=== PATIENT | female | born 1990 | race Caucasian/White ===

== ENCOUNTER 2016-04-23 05:43 | Emergency (ER) | payer OTHER ==
[~2016-04-23] VITALS: Ht 160 cm; Wt 89.4 kg
[~2016-04-23 05:43] MED LIST: NIFE10CA2 PO; PREN1TAB27 PO
[2016-04-23 05:55] VITALS: BP 113/69
[2016-04-23] MEDS ORDERED: LIDOCAINE 2% VISCOUS 15 ML SOLUTION. SWSW ONE (06:30)
--- NOTE | 2016-04-23 06:40 | PHYS DOC ---
Past Medical History Past Medical History: No Pertinent History Past Surgical History: Additional Past Surgical Histo: hernia repair Alcohol Use: None Drug Use: None Adult General Chief Complaint Chief Complaint: FOREIGNBODY EAR HPI HPI Patient is a 25 year old female who presents with possible foreign body in right ear. Patient states she awoke shortly before arrival in the emergency department with a sensation of something moving in her right ear. Patient is concerned she may have a bug in her ear. The patient states that she tried to clear the foreign body but stated that she stopped when she felt increased movement. Patient denies any other complaints. Patient came to the emergency department for evaluation and removal of the foreign body. Review of Systems Review of Systems Constitutional: Denies fever or chills [] Eyes: Denies change in visual acuity, redness, or eye pain [] HENT: Denies nasal congestion or sore throat [] Respiratory: Denies cough or shortness of breath [] Cardiovascular: No additional information not addressed in HPI [] GI: Denies abdominal pain, nausea, vomiting, bloody stools or diarrhea [] : Denies dysuria or hematuria [] Musculoskeletal: Denies back pain or joint pain [] Integument: Denies rash or skin lesions [] Neurologic: Denies headache, focal weakness or sensory changes [] Endocrine: Denies polyuria or polydipsia [] Current Medications Current Medications Current Medications Medications (Trade) Dose Ordered Sig/[facility] Start Time Stop Time Status Last Admin Dose Admin Lidocaine HCl (Viscous Lidocaine) 15 ml 1X ONCE 04/23/16 06:30 04/23/16 06:31 DC 04/23/16 06:30 15 ML Allergies Allergies Allergies Coded Allergies Type Severity Reaction Last Updated Verified No Known Drug Allergies 07/25/13 No Physical Exam Physical Exam Constitutional: Well developed, well nourished, no acute distress, non-toxic appearance. [] HENT: Normocephalic, atraumatic, visible insect present in right ear canal, ear canal excoriated, left ear normal, oropharynx moist, no oral exudates, nose normal. [] Neck: Normal range of motion, no tenderness, supple, no stridor. [] Lungs & Thorax: Bilateral breath sounds clear to auscultation [] Extremities: No tenderness, no cyanosis, no clubbing, ROM intact, no edema. [] Neurologic: Alert and oriented X 3, normal motor function, normal sensory function, no focal deficits noted. [] Current Patient Data Vital Signs Vital Signs Date Time Temp Pulse Resp B/P Pulse Ox O2 Delivery O2 Flow Rate FiO2 04/23/16 05:55 98.1 88 16 97 Room Air 98.1 EKG EKG Not performed [] Radiology/Procedures Radiology/Procedures Not performed [] Course & Med Decision Making Course & Med Decision Making Pertinent Labs and Imaging studies reviewed. (See chart for details) Insect was successfully removed from the patient's right ear canal as outlined in the procedure note. Patient had a significant amount of excoriation to the right ear canal and will be started on Cortisporin drops for the next 3 days. Advised follow-up as needed with primary doctor and return to emergency department for any worsening symptoms. Patient voiced understanding and in agreement with treatment plan. Dragon Disclaimer Dragon Disclaimer This electronic medical record was generated, in whole or in part, using a voice recognition dictation system. Foreign Body Removal Procedure Indication: Insect in right ear canal Procedure: The patient was positioned in seated position for the procedure. Local anesthesia over the foreign body site was accomplished with placement of 4 -5 drops of viscous lidocaine in the right ear canal. The foreign body was then removed with flushing using saline. The patient tolerated the procedure well. Complications: None Departure Departure Impression: Primary Impression: Ear foreign body Disposition: 01 HOME, SELF-CARE Condition: IMPROVED Referrals: NO PCP (PCP) Patient Instructions: Ear Foreign Body Additional Instructions: Follow-up with your primary doctor as needed. Return to the emergency department for any worsening symptoms. Scripts Ofloxacin 5 Ml Drops5 Drop EACH EAR BID 5 Days Prov:JADE NAIDU MD 04/23/16 Problem Qualifiers Primary Impression: Ear foreign body Encounter type: initial encounter Laterality: right Qualified Code: T16.1XXA - Foreign body in right ear, initial encounter JADE NAIDU MD Apr 23, 2016 06:40
[2016-04-23] MEDS ORDERED: OFLO5DRO7 EACH EAR (06:53)
== END 2016-04-23 07:10 | disposition home or self-care (01) ==
LOC: ER 05:43
DX: T16.1XXA Foreign body in right ear, initial encounter (principal); X58.XXXA Exposure to other specified factors, initial encounter; Y93.89 Activity, other specified; Y99.8 Other external cause status; Y92.89 Other specified places as the place of occurrence of the external cause
CPT/HCPCS: 69200; 99284-25

== ENCOUNTER 2016-07-09 09:16 | Emergency (ER) | payer SELFPAY ==
[~2016-07-09] VITALS: Ht 162.6 cm; Wt 90.7 kg
[~2016-07-09 09:16] MED LIST changes: +OFLO5DRO7 EACH EAR
[2016-07-09 11:18] VITALS: BP 128/85
--- NOTE | 2016-07-09 11:54 | PHYS DOC ---
Past Medical History Past Medical History: No Pertinent History Past Surgical History: Additional Past Surgical Histo: hernia repair Additional Information: Nonsmoker Alcohol Use: None Drug Use: None Adult General Chief Complaint Chief Complaint: MECHANICAL FALL HPI HPI Patient is a 25 year old female who presents with pain in her tailbone after fall at 0300 this morning. Patient states that she tripped over the baby gate and fell, landing on her bottom. She denies hitting her head or loss of consciousness. She does not have any incontinence or saddle anesthesia. She denies nausea, vomiting, abdominal pain, weakness, or numbness. She took ibuprofen at 0830. She does not have a PCP. Review of Systems Review of Systems Constitutional: Denies fever or chills. [] Eyes: Denies change in visual acuity, redness, or eye pain. [] GI: Denies abdominal pain, nausea, vomiting, bloody stools or diarrhea. [] : Denies dysuria, hematuria or urinary frequency. [] Musculoskeletal: Denies joint pain. Reports pain in the tailbone. Integument: Denies rash or skin lesions. [] Neurologic: Denies headache, focal weakness or sensory changes. Denies incontinence or saddle anesthesia. All systems reviewed and negative unless otherwise stated in the HPI. Allergies Allergies Allergies Coded Allergies Type Severity Reaction Last Updated Verified No Known Drug Allergies 07/25/13 No Physical Exam Physical Exam Constitutional: Well developed, well nourished, no acute distress, non-toxic appearance. [] HENT: Normocephalic, atraumatic, oropharynx moist. [] Eyes: PERRLA, EOMI, conjunctiva normal, no discharge. [] Neck: Normal range of motion, no tenderness, supple, no stridor. [] Cardiovascular: Heart rate regular rhythm, no murmur. [] Lungs & Thorax: Bilateral breath sounds clear to auscultation without wheezes, rales, or rhonchi. [] Abdomen: Bowel sounds normal, soft, no tenderness, no masses, no pulsatile masses. [] Skin: Warm, dry, no erythema, no rash. [] Back: Sacral midline tenderness, no CVA tenderness. Mild bilateral lumbosacral muscle tenderness. Extremities: No tenderness, ROM intact, no edema. Distal pulses equal bilaterally. Vascular intact distally. Neurologic: Alert and oriented X 3, normal motor function, normal sensory function, no focal deficits noted. [] Psychologic: Affect normal, judgement normal, mood normal. [] Current Patient Data Vital Signs Vital Signs Date Time Temp Pulse Resp B/P Pulse Ox O2 Delivery O2 Flow Rate FiO2 07/09/16 11:18 98.1 65 20 100 Room Air 98.1 Lab Values Laboratory Tests Test 07/09/16 10:44 POC Urine HCG, Qualitative Hcg negative (Negative) EKG EKG [] Radiology/Procedures Radiology/Procedures REASON: fall at 0300 PROCEDURE: SACRUM & COCCYX 3V Sacrococcygeal spine, 3 views, 07/09/2016: History: Fall, pain No fracture is identified. The presacral soft tissues are unremarkable. IMPRESSION: No significant abnormality is detected. Course & Med Decision Making Course & Med Decision Making Pertinent Labs and Imaging studies reviewed. (See chart for details) [] Dragon Disclaimer Dragon Disclaimer This electronic medical record was generated, in whole or in part, using a voice recognition dictation system. Departure Departure Impression: Primary Impression: Coccygeal contusion Disposition: 01 HOME, SELF-CARE Condition: STABLE Referrals: NO PCP (PCP) Patient Instructions: Tailbone Injury, [id number] Additional Instructions: There were no broken bones or dislocations seen on your x-ray. Please take the prescribed medications as directed. Do not drive or operate heavy machinery while taking these medications. You may purchase a donut pillow to sit on while your tailbone heals. You may take a stool softener to help keep your bowel movements soft. Please follow-up with a primary care doctor if your pain continues. Return to the emergency department if you have any new or concerning symptoms. Scripts Methocarbamol (Robaxin)500 Mg [id number] Mg PO QID #20 TAB Prov:URIAH WATKINS 07/09/16 Tramadol Hcl (Ultram)50 Mg [id number] Mg PO Q6H PRN PAIN #20 TAB Prov:URIAH WATKNIS 07/09/16 Problem Qualifiers Primary Impression: Coccygeal contusion Encounter type: initial encounter Qualified Code: S30.0XXA - Contusion of lower back and pelvis, initial encounter URIAH WATKINS Jul 09, 2016 11:54
--- NOTE | 2016-07-09 12:30 | RAD ---
Sacrococcygeal spine, 3 views, 07/09/2016: History: Fall, pain No fracture is identified. The presacral soft tissues are unremarkable. IMPRESSION: No significant abnormality is detected.
[2016-07-09] MEDS ORDERED: METH-37 PO (12:58)
[2016-07-09] MEDS ORDERED: TRAM-29 PO (12:58)
== END 2016-07-09 13:18 | disposition home or self-care (01) ==
LOC: ER 09:16
DX: S30.0XXA Contusion of lower back and pelvis, initial encounter (principal); W01.0XXA Fall on same level from slipping, tripping and stumbling without subsequent striking against object, initial encounter; Y93.89 Activity, other specified; Y92.89 Other specified places as the place of occurrence of the external cause; Y99.8 Other external cause status
CPT/HCPCS: 72220; 81025; 99284

== ENCOUNTER 2016-09-19 01:20 | Emergency (ER) | payer OTHER ==
[~2016-09-19] VITALS: Ht 160 cm; Wt 93.9 kg
[~2016-09-19 01:20] MED LIST changes: +METH-37 PO; -NIFE10CA2 PO; +NIFE10CA48 PO; +TRAM-48 PO
[2016-09-19 01:33] VITALS: BP 132/84
--- NOTE | 2016-09-19 02:11 | PHYS DOC ---
Past Medical History Past Medical History: No Pertinent History Past Surgical History: Additional Past Surgical Histo: hernia repair Alcohol Use: None Drug Use: None Adult General Chief Complaint Chief Complaint: FOREIGNBODY EAR HPI HPI Patient is a 26 year old female who presents with right ear pain and sensation that there is a bug in her ear. She is very anxious about this. She denies headache, tinnitus, numbness, tingling, weakness, dizziness. Review of Systems Review of Systems Constitutional: Denies fever or chills [] Eyes: Denies change in visual acuity, redness, or eye pain [] HENT: Denies nasal congestion or sore throat [] Respiratory: Denies cough or shortness of breath [] Cardiovascular: No additional information not addressed in HPI [] GI: Denies abdominal pain, nausea, vomiting, bloody stools or diarrhea [] : Denies dysuria or hematuria [] Musculoskeletal: Denies back pain or joint pain [] Integument: Denies rash or skin lesions [] Neurologic: Denies headache, focal weakness or sensory changes [] Endocrine: Denies polyuria or polydipsia [] Allergies Allergies Allergies Coded Allergies Type Severity Reaction Last Updated Verified No Known Drug Allergies 07/25/13 No Physical Exam Physical Exam Constitutional: Well developed, well nourished, no acute distress, non-toxic appearance. [] HENT: Normocephalic, atraumatic, bilateral external ears normal, oropharynx moist, nose normal. Bug in right ear canal. 2 red spots on TM without perforation. [] Eyes: PERRLA, EOMI. [] Neck: Normal range of motion, supple. [] Cardiovascular:Heart rate regular rhythm [] Lungs & Thorax: Bilateral breath sounds clear to auscultation [] Abdomen: Bowel sounds normal, soft, no tenderness. [] Skin: Warm, dry, no erythema, no rash. [] Back: Normal ROM. [] Extremities: No tenderness, ROM intact. [] Neurologic: Alert and oriented X 3, normal motor function, normal sensory function, no focal deficits noted. [] Psychologic: Affect normal, judgement normal, mood normal. [] Current Patient Data Vital Signs Vital Signs Date Time Temp Pulse Resp B/P (MAP) Pulse Ox O2 Delivery O2 Flow Rate FiO2 09/19/16 01:33 98.2 78 20 100 Room Air 98.2 Course & Med Decision Making Course & Med Decision Making Ear irrigated with lidocaine. Foreign body no longer present. She is asymptomatic at this time. Return precautions given. She understands and agrees plan. Monae Disclaimer Monae Disclaimer This electronic medical record was generated, in whole or in part, using a voice recognition dictation system. Departure Departure Impression: Primary Impression: Ear foreign body Disposition: HOME, SELF-CARE Condition: STABLE Referrals: NO PCP (PCP) Patient Instructions: Ear Foreign Body, [id number] Additional Instructions: Follow-up with your primary care doctor. Return for any concerns. Problem Qualifiers Primary Impression: Ear foreign body Encounter type: initial encounter Laterality: right Qualified Codes: T16.1XXA - Foreign body in right ear, initial encounter Oxana MUNOZ MD Sep 19, 2016 02:11
== END 2016-09-19 02:31 | disposition home or self-care (01) ==
LOC: ER 01:20
DX: T16.1XXA Foreign body in right ear, initial encounter (principal); F41.9 Anxiety disorder, unspecified; X58.XXXA Exposure to other specified factors, initial encounter; Y93.89 Activity, other specified; Y92.89 Other specified places as the place of occurrence of the external cause; Y99.8 Other external cause status
CPT/HCPCS: 99284

== ENCOUNTER 2016-11-28 11:27 | Emergency (ER) | payer OTHER ==
[~2016-11-28] VITALS: Ht 162.6 cm; Wt 90.7 kg
[2016-11-28 11:33] VITALS: BP 139/74
--- NOTE | 2016-11-28 11:50 | PHYS DOC ---
Past Medical History Past Medical History: No Pertinent History Past Surgical History: Other Additional Past Surgical Histo: UMBILICAL HERNIA Alcohol Use: None Drug Use: None Adult General Chief Complaint Chief Complaint: CHEST WALL PAIN [facility] HPI This is a pleasant 26-year-old female who was working at her place of work when she was struck by a chest wall pain over the left breast. It is waxing and waning but never completely resolving and is worse with breathing and chest wall movement as well as movement of the left shoulder. It is described as sharp and stabbing with no cause for shortness of breath, nausea, vomiting, URI symptoms. She denies any trauma, night sweats, weight loss or productive cough. Patient says the pain is moderate and sharp in nature. It does not radiate to the shoulder or back, But is worsened by shoulder movement. Impression denies any prior injury to her chest wall denies being or having any pulmonary embolus risk factors. sHe has no family history or cardiac risk factors. Differential diagnosis for chest pain: Pericarditis, myocarditis, endocarditis, pneumothorax, pneumonia, aortic dissection, esophageal spasm, esophagitis, peptic ulcer disease, acute coronary syndrome, mediastinitis, Boerhaave syndrome, musculoskeletal chest wall pain, costochondritis, intercostal strain, rib fracture, pulmonary contusion, pneumonitis, pleural effusion, pericardial effusion, pericardial tamponode, and pleurisy. Considered upon arrival based on patient's history and physical exam findings. An EKG and chest x-ray are been ordered Review of Systems Review of Systems Constitutional: Denies fever or chills [] Eyes: Denies change in visual acuity, redness, or eye pain [] HENT: Denies nasal congestion or sore throat [] Respiratory: Denies cough or shortness of breath [] Cardiovascular: No additional information not addressed in HPI [] GI: Denies abdominal pain, nausea, vomiting, bloody stools or diarrhea [] : Denies dysuria or hematuria [] Musculoskeletal: Denies back pain or joint pain [] Integument: Denies rash or skin lesions [] Neurologic: Denies headache, focal weakness or sensory changes [] Endocrine: Denies polyuria or polydipsia [] Allergies Allergies Allergies Coded Allergies Type Severity Reaction Last Updated Verified No Known Drug Allergies 07/25/13 No Physical Exam Physical Exam Vital signs recorded on the chart they're within normal limits. Constitutional: Well developed, well nourished, no acute distress, non-toxic appearance. [] Neck: Normal range of motion, no tenderness, supple, no stridor. [] Cardiovascular:Heart rate regular rhythm, no murmur, she has localized soft tissue tenderness to palpation with a local muscle spasm over the pectoralis major on the left. There is no change in the tissue color, there is no rashes no redness or swelling. Tender to palpation over the apical, ribs or sternum. [] Lungs & Thorax: Bilateral breath sounds clear to auscultation [] Skin: Warm, dry, no erythema, no rash. [] Back: No tenderness, no CVA tenderness. [] Extremities: No tenderness, no cyanosis, no clubbing, ROM intact, no edema. [] Neurologic: Alert and oriented X 3, normal motor function, normal sensory function, no focal deficits noted. [] Psychologic: Affect normal, judgement normal, mood normal. [] Current Patient Data Vital Signs Vital Signs Date Time Temp Pulse Resp B/P (MAP) Pulse Ox O2 Delivery O2 Flow Rate FiO2 11/28/16 11:33 98.2 94 20 99 Room Air 98.2 EKG EKG EKG timed 11:34 AM 11/28/[address] Laureano demonstrates normal sinus rhythm with a heart rate of 75 [place] interval of 142 which is normal. General 92 which is normal QTC of 422 which is normal. There is no ST segment or T-wave inversions concerning for acute coronary ischemia. She does have T-wave inversion in V1 but that may be a normal variant.[] Radiology/Procedures Radiology/Procedures [] [facility] [address] [place] [address] IMAGING REPORT Signed PATIENT: ADDIE ISLAS ACCOUNT: [id number] : 1990 LOCATION: ER AGE: 26 SEX: F EXAM STATUS: PRE ER ORD. PHYSICIAN: OLGA LAUREANO MD REASON: chest wall pain PROCEDURE: CHEST PA & LATERAL EXAM: CHEST 2 VIEWS History: Chest pain COMPARISON: 05/31/2012 TECHNIQUE: PA and lateral chest radiographs FINDINGS: The cardiomediastinal silhouette is within normal limits. The lungs are clear bilaterally. The costophrenic sulci are clear and well demarcated bilaterally. IMPRESSION: No radiographic evidence of an acute cardiopulmonary abnormality. DICTATED and SIGNED BY: LIBIA BILL MD DATE: 11/28/16 1157 CC: OLGA LAUREANO MD; NO PCP ~ Course & Med Decision Making Course & Med Decision Making Pertinent Labs and Imaging studies reviewed. (See chart for details) She presents with sudden onset of chest wall pain after working at work. It is likely muscular skeletal nature as her EKG and chest x-ray are unremarkable there is no evidence of acute coronary ischemia, doubt pericarditis based on EKG appearance and history. There is no evidence of pleural effusion or direct infiltrate on chest x-ray. Patient also has no evidence of pneumothorax. She was given an IM dose of Toradol which show some improvement in her symptoms. [] Dragon Disclaimer Dragon Disclaimer This electronic medical record was generated, in whole or in part, using a voice recognition dictation system. Departure Departure Impression: Primary Impression: Costochondritis Additional Impression: Chest wall pain Disposition: 01 HOME, SELF-CARE Condition: IMPROVED Referrals: NO PCP (PCP) Patient Instructions: Chest Pain (Nonspecific), Chest Wall Pain Additional Instructions: My discharge plan Follow up: In addition patient is asked to followup with their primary doctor, within a week for followup examination and to address patient's ongoing medical conditions. Because patient does not have a regular medical doctor, a local physician Resource Sheet will be provided to establish care primary care. Patient is advised that in the Emergency Department primary complaints are addressed and only in light of known signs and symptoms. Patient should return immediately to the emergency department if new signs and symptoms develop or patient's condition worsens in any way. At time of discharge patient was in stable condition and had verbalized understanding of the discharge instructions. Scripts Acetaminophen (TYLENOL) 325 Mg Tablet 1-2 TAB PO QID, #60 TAB 2 Refills Prov: OLGA LAUREANO MD 11/28/16 Naproxen (NAPROSYN) 500 Mg Tablet 1 TAB PO BID, #14 TAB 1 Refill Prov: OLGA LAUREANO MD 11/28/16 Problem Qualifiers OLGA LAUREANO MD Nov 28, 2016 11:50
--- NOTE | 2016-11-28 12:00 | RAD ---
EXAM: CHEST 2 VIEWS History: Chest pain COMPARISON: 05/31/2012 TECHNIQUE: PA and lateral chest radiographs FINDINGS: The cardiomediastinal silhouette is within normal limits. The lungs are clear bilaterally. The costophrenic sulci are clear and well demarcated bilaterally. IMPRESSION: No radiographic evidence of an acute cardiopulmonary abnormality.
--- NOTE | 2016-11-28 12:01 | EKG ---
[facility] [address] [place] [address] Test Date: 2016-11-28 Test Time: 11:34:40 Pat Name: ADDIE ISLAS Department: Room: Gender: F Data Management Engineer: : 1990 Requested By: OLGA LAUREANO Order Number: [id number] Reading MD: Chiki Lyon Measurements Intervals Guy Rate: 75 P: 33 IL: 142 QRS: 56 QRSD: 92 T: 28 QT: 376 QTc: 422 Interpretive Statements SINUS RHYTHM Electronically Signed On 11-30-2016 10:22:18 CDT by Chiki Lyon
[2016-11-28] MEDS ORDERED: NAPR500T PO (12:08)
[2016-11-28] MEDS ORDERED: ACET325T9 PO (12:08)
[2016-11-28] MEDS ORDERED: KETOROLAC TROMETHAMINE 60 MG/2 ML INJ. IM ONE (12:15)
[2016-11-28] MEDS ORDERED: ACETAMINOPHEN 500 MG TABLET PO ONE (12:15)
== END 2016-11-28 12:35 | disposition home or self-care (01) ==
LOC: ER 11:27
DX: M94.0 Chondrocostal junction syndrome [Tietze] (principal)
CPT/HCPCS: 71020; 93005; 96372; 99284; J1885

== ENCOUNTER 2017-02-13 15:42 | Emergency (ER) | payer OTHER ==
[~2017-02-13] VITALS: Ht 160 cm; Wt 93.0 kg
[~2017-02-13 15:42] MED LIST changes: +ACET325T9 PO; +NAPR500T PO
--- NOTE | 2017-02-13 16:24 | PHYS DOC ---
Past Medical History Past Medical History: No Pertinent History Past Surgical History: Other Additional Past Surgical Histo: UMBILICAL HERNIA Alcohol Use: None Drug Use: None Adult General Chief Complaint Chief Complaint: WRIST PAIN HPI HPI Patient is a 26 year old female present to the emergency department with a history of right hand, right wrist pain and discomfort. Patient states that this is been occurring for the last few days. She states that she was at a wedding when she tried to lift her son believes that she lifted him up and crackly and injured her hand and wrist. She states that she's been having shooting pain going up into her arm. She states the pain is an 8 out of 10. She has been taking ibuprofen 800 mg twice daily with minimal relief. Patient denies any change in sensation. Patient is right-hand dominant. Review of Systems Review of Systems Constitutional: Denies fever or chills [] Eyes: Denies change in visual acuity, redness, or eye pain [] HENT: Denies nasal congestion or sore throat [] Respiratory: Denies cough or shortness of breath [] Cardiovascular: No additional information not addressed in HPI [] GI: Denies abdominal pain, nausea, vomiting, bloody stools or diarrhea [] : Denies dysuria or hematuria [] Musculoskeletal: Denies back pain. Right wrist pain and discomfort Integument: Denies rash or skin lesions [] Neurologic: Denies headache, focal weakness or sensory changes [] Endocrine: Denies polyuria or polydipsia [] All other systems were reviewed and found to be within normal limits, except as documented in this note. Allergies Allergies Allergies Coded Allergies Type Severity Reaction Last Updated Verified No Known Drug Allergies 07/25/13 No Physical Exam Physical Exam Constitutional: Well developed, well nourished, no acute distress, non-toxic appearance. [] HENT: Normocephalic, atraumatic, bilateral external ears normal, oropharynx moist, no oral exudates, nose normal. [] Eyes: PERRLA, EOMI, conjunctiva normal, no discharge. [] Neck: Normal range of motion, no tenderness, supple, no stridor. [] Cardiovascular:Heart rate regular rhythm, no murmur [] Lungs & Thorax: Bilateral breath sounds clear to auscultation [] Skin: Warm, dry, no erythema, no rash. [] Back: No tenderness Extremities: Right proximal hand and distal wrist tenderness, no cyanosis, no clubbing, ROM intact, no edema. Peripheral pulses 2+ cap refill brisk less than 2 seconds. Patient with good sensation to her fingers. Neurologic: Alert and oriented X 3, normal motor function, normal sensory function, no focal deficits noted. [] Psychologic: Affect normal, judgement normal, mood normal. [] Current Patient Data Vital Signs Vital Signs Date Time Temp Pulse Resp B/P (MAP) Pulse Ox O2 Delivery O2 Flow Rate FiO2 02/13/17 16:28 99.0 73 16 99 Room Air 99.0 EKG EKG [] Radiology/Procedures Radiology/Procedures [][facility] [address] [place] [address] IMAGING REPORT Signed PATIENT: ADDIE ISLAS ACCOUNT: [id number] : 1990 LOCATION: ER AGE: 26 SEX: F EXAM STATUS: REG ER ORD. PHYSICIAN: SOFIA BACON APRN REASON: right wrist pain PROCEDURE: WRIST 3V RIGHT RIGHT WRIST, 3 VIEWS Indication: right wrist pain x2 days Findings: There is no acute fracture or dislocation. No bony erosion is identified. The bony articulations are normal. The mineralization is normal. There is no soft tissue swelling or radiopaque foreign body. IMPRESSION: No acute fracture or dislocation. DICTATED and SIGNED BY: RUCHI SAVAGE MD DATE: 02/13/17 1631 CC: SOFIA BACON APRN; NO PCP; NON,STAFF ~ Course & Med Decision Making Course & Med Decision Making Pertinent Labs and Imaging studies reviewed. (See chart for details) Right wrist x-rays negative for bony abnormalities. Patient will be placed in an Michael wrap with recommendations to follow up with orthopedic in the next week. Recommended 800 mg of ibuprofen every 8 hours with food. Stop taking the medications if he developed an upset stomach. Patient was instructed to use ice packs on 20 minutes off 20 minutes several times stabilizations with possible. Patient agrees with discharge instructions, treatment regimens and follow-up recommendations. I've spoken with the patient and/or caregivers. I've explained the patient's condition, diagnosis and treatment plan based on information available to me at this time. I've answered the patient's and/or caregivers questions and addressed any concerns. The patient and/or caregivers have a good understanding the patient's diagnosis, condition and treatment plan as can be expected at this point. Vital signs have been stabilized. The patient's condition is stable for discharge from the emergency department. The patient will pursue further outpatient evaluation with her primary care provider or other designated consulting physician as outlined in the discharge instructions. Patient and/or caregivers are agreeable to this plan of care and follow-up instructions have been explained in detail. The patient and/or caregivers have received these instructions in written format and expressed understanding of these discharge instructions. The patient and her caregivers are aware that if any significant change in condition or worsening of symptoms should prompt him to immediately return to this of the closest emergency department. If an emergent department is not readily available I would encourage him to call 911. Monae Disclaimer Dragon Disclaimer This electronic medical record was generated, in whole or in part, using a voice recognition dictation system. Departure Departure Impression: Primary Impression: Right wrist sprain Disposition: HOME, SELF-CARE Condition: STABLE Referrals: NO PCP (PCP) IVANA HORTA MD Patient Instructions: RICE - Routine Care for Injuries, [id number], Wrist Sprain with Rehab-SportsMed Additional Instructions: Activity as tolerated Ibuprofen 800 mg every hours 8 hours with food, stop taking if you develop upset stomach Ice packs on 20 minutes and off 20 minutes several times a day Elevation as much as possible Wear the michael wrap for the 7 days Followup with orthopedic in 5-7 days Return to emergency department as needed for signs and symptoms that become worse. Problem Qualifiers Primary Impression: Right wrist sprain Encounter type: initial encounter Qualified Codes: S63.501A - Unspecified sprain of right wrist, initial encounter SOFIA BACON MACHINE H[employer]DLE CLE[employer]ER Feb 13, 2017 16:24
[2017-02-13 16:28] VITALS: BP 117/84
--- NOTE | 2017-02-13 16:37 | RAD ---
RIGHT WRIST, 3 VIEWS Indication: right wrist pain x2 days Findings: There is no acute fracture or dislocation. No bony erosion is identified. The bony articulations are normal. The mineralization is normal. There is no soft tissue swelling or radiopaque foreign body. IMPRESSION: No acute fracture or dislocation.
== END 2017-02-13 16:59 | disposition home or self-care (01) ==
LOC: ER 15:42
DX: S63.501A Unspecified sprain of right wrist, initial encounter (principal); X58.XXXA Exposure to other specified factors, initial encounter; Y93.89 Activity, other specified; Y92.89 Other specified places as the place of occurrence of the external cause; Y99.8 Other external cause status
CPT/HCPCS: 73110; 99284-25

== ENCOUNTER 2017-12-02 13:19 | Emergency (ER) | payer SELFPAY ==
[~2017-12-02] VITALS: Ht 162.6 cm; Wt 104.3 kg
[~2017-12-02 13:19] MED LIST changes: +NAPR-683 PO; -NAPR500T PO
--- NOTE | 2017-12-02 13:57 | PHYS DOC ---
Past Medical History Past Medical History: No Pertinent History Past Surgical History: , Other Additional Past Surgical Histo: UMBILICAL HERNIA Alcohol Use: None Drug Use: None Adult General Chief Complaint Chief Complaint: MECHANICAL FALL HPI HPI 27-year-old female presenting the emergency department after slipping down a hill on the side of her house. She sustained injury to the right ankle where she has sharp shooting pain. She denies weakness or numbness in the right foot. She has swelling in the ankle that is associated with the injury. The pain is moderate nonradiating intermittent and without alleviating factors. She denies knee pain or hip pain. She did not pass out. Denies head injury or neck pain. Review of systems is negative for chest pain shortness of breath abdominal pain neck pain or headache. All other review of systems is negative unless otherwise noted in history of present illness. ED course: 27-year-old female presenting to the emergency department today with right ankle pain. Secondary survey shows no other injuries. Abrasions to the ankle and leg on the right. Tenderness in the right ankle. 2 second cap refill with normal neurovascular status of the foot. Nontender knee with normal range of motion. Nontender hip. Secondary survey otherwise shows no acute traumatic injuries. X-rays obtained which showed acute fracture of the ankle. Tetanus updated. Wound was washed out in the emergency department. I spoke with Dr. Monique about this patient. He asked that I placed the patient in a U splint. We will discharge the patient follow-up with orthopedic surgery in 4-5 days. Nonweightbearing in the interim. Review of Systems Review of Systems SEE ABOVE. Current Medications Current Medications Current Medications Medications (Trade) Dose Ordered Sig/Kayden Start Time Stop Time Status Last Admin Dose Admin Diphtheria/ Tetanus/Acell Pertussis (Boostrix) 0.5 ml ONCE ONCE 12/02/17 14:00 12/02/17 14:10 DC 12/02/17 14:27 0.5 ML Fentanyl Citrate (Fentanyl 2ml Vial) 50 mcg 1X ONCE 12/02/17 14:00 12/02/17 14:10 DC 12/02/17 14:59 50 MCG Allergies Allergies Allergies Coded Allergies Type Severity Reaction Last Updated Verified No Known Drug Allergies 07/25/13 No Physical Exam Physical Exam SEE ABOVE Constitutional: Well developed, well nourished, no acute distress, non-toxic appearance. [] HENT: Normocephalic, atraumatic, bilateral external ears normal, oropharynx moist, no oral exudates, nose normal. [] Eyes: PERRLA, EOMI, conjunctiva normal, no discharge. [] Neck: Normal range of motion, no tenderness, supple, no stridor. [] Cardiovascular:Heart rate regular rhythm, no murmur [] Lungs & Thorax: Bilateral breath sounds clear to auscultation [] Abdomen: Bowel sounds normal, soft, no tenderness, no masses, no pulsatile masses. [] Skin: Warm, dry, no erythema, no rash. [] Back: No tenderness, no CVA tenderness. [] Extremities: ABOVE Neurologic: Alert and oriented X 3, normal motor function, normal sensory function, no focal deficits noted. [] Psychologic: Affect normal, judgement normal, mood normal. [] Current Patient Data Vital Signs Vital Signs Date Time Temp Pulse Resp B/P (MAP) Pulse Ox O2 Delivery O2 Flow Rate FiO2 12/02/17 15:30 80 98 12/02/17 14:59 20 Room Air 12/02/17 13:19 98.1 120/76 (91) 98.1 EKG EKG [] Radiology/Procedures Radiology/Procedures [] Course & Med Decision Making Course & Med Decision Making Pertinent Labs and Imaging studies reviewed. (See chart for details) [] Dragon Disclaimer Dragon Disclaimer This electronic medical record was generated, in whole or in part, using a voice recognition dictation system. Departure Departure Impression: Primary Impression: Ankle injury Additional Impressions: Fracture of distal end of tibia Fracture of distal end of tibia with fibula Closed fracture of posterior malleolus Disposition: HOME, SELF-CARE Condition: STABLE Referrals: NO PCP (PCP) CIRILO MONIQUE II, MD follow up on tuesday Patient Instructions: Ankle Fracture Additional Instructions: Thank you for allowing us to participate in your care today. Return to the emergency department you have any new or worsening symptoms, or if you are concerned for any reason. Return to emergency department if you have any new or concerning symptoms including but not limited to fever, chills, nausea, vomiting, intractable pain, any new rashes, chest pain, shortness of air , uncontrolled bleeding, difficulty breathing, and/or vision loss. Follow up with dr monique in 4-5 days. Call your Primary Doctor tomorrow and inform them of your visit today. If you do not have a primary care provider we are happy to provide you with a list of our primary care providers contact information. This condition should be evaluated by your primary care physician and any recommended consulting services for continued management after discharge. If at any time, you are having difficulty getting into your primary care doctor or a specialist, return to the emergency department. Scripts Hydrocodone Bit/Acetaminophen (HYDROCODONE-APAP 5-325 ) 1 Each Tablet 1 TAB PO PRN Q8HRS PRN for sev, #8 TAB 0 Refills Prov: MIKALA EASON MD 12/02/17 Problem Qualifiers MIKALA EASON MD Dec 02, 2017 13:57
[2017-12-02] MEDS ORDERED: fentaNYL PF VIAL 100 MCG/2 ML VIAL IV ONE (14:00)
[2017-12-02] MEDS ORDERED: DIPHTH,PERTUSS(ACELL),TET TOX 0.5 ML DISP.SYRIN. VAX IM ONE (14:00)
--- NOTE | 2017-12-02 14:41 | RAD ---
Right ankle, 3 views, 12/02/2017: HISTORY: Fall, pain There is an oblique fracture of the distal fibula with only slight posterior displacement of the distal fracture fragment. No significant angulation is evident. There is also a fracture of the posterior malleolus of the distal tibia without significant displacement. No other fracture or dislocation is identified. There is moderate soft tissue swelling, particularly over the lateral malleolus. IMPRESSION: Acute fractures of the distal fibula and posterior malleolus of the distal tibia. Right tibia and fibula, 2 views, 12/02/2017: Views of the proximal lower leg reveal no additional fracture or bony abnormality. IMPRESSION: No additional fracture is identified Right foot, 3 views, 12/02/2017: No additional fracture or dislocation is identified. There is generalized subcutaneous edema. IMPRESSION: No additional fracture is identified. Electronically signed by: Michael Madrid MD (12/02/2017 2:39 PM) [facility]
[2017-12-02] MEDS ORDERED: HYDR-2758 PO (15:15)
[2017-12-02 15:30] VITALS: BP 122/75
== END 2017-12-02 15:39 | disposition home or self-care (01) ==
LOC: ER 13:19
DX: S82.301A Unspecified fracture of lower end of right tibia, initial encounter for closed fracture (principal); S82.831A Other fracture of upper and lower end of right fibula, initial encounter for closed fracture; S90.511A Abrasion, right ankle, initial encounter; S82.891A Other fracture of right lower leg, initial encounter for closed fracture; Z98.890 Other specified postprocedural states; W17.81XA Fall down embankment (hill), initial encounter; Y93.89 Activity, other specified; Y92.89 Other specified places as the place of occurrence of the external cause; Y99.8 Other external cause status
CPT/HCPCS: 29515; 73590; 73610; 73630; 90471; 90715; 96374; 99284; J3010

== ENCOUNTER → 2017-12-12 | Outpatient (CLI) | payer SELFPAY ==
[2017-12-02 15:30] VITALS: BP 122/75
[~2017-12-12] MED LIST changes: +HYDR-2758 PO; +IBUP200T44 PO
--- NOTE | 2017-12-12 13:15 | RAD ---
EXAM: CT right ankle DATE: 12/12/2017 11:00 AM COMPARISON: Radiographs 12/02/17 INDICATION: PRE OP RIGHT ANKLE FX TECHNIQUE: Non-union protocol completed through the affected site without IV contrast. 2-D reformatted sagittal and coronal images were created at the CT console workstation. FINDINGS: There is an oblique fracture of the distal fibular diametaphysis, essentially nondisplaced. There is a posterior malleolar fracture, with a fragment size approximately 40% of the articular surface. There is approximately 1 mm depression of the posterior malleolar fracture fragment with approximately 3 mm gap between the principal fracture fragments. No ankle joint effusion. Moderate soft tissue swelling overlying the fibula and medial malleolus. Ankle mortise is congruent. Talar dome is intact. IMPRESSION: 1. Nondisplaced oblique distal fibular diametaphyseal fracture 2. Posterior malleolar fracture with approximately 3 mm gap between the principal fracture fragments, fragment size is approximately 40% of the articular surface. 3. No definite medial malleolar fracture. Electronically signed by: Frank Galaviz MD (12/12/2017 1:11 PM) [facility]
== END | disposition home or self-care (01) ==
LOC: CT 10:44
PROVIDERS: ATTEND Orthopaedic Surgery Sports Medicine
DX: Z01.818 Encounter for other preprocedural examination (principal); S89.391A Other physeal fracture of lower end of right fibula, initial encounter for closed fracture; S82.891A Other fracture of right lower leg, initial encounter for closed fracture; R22.41 Localized swelling, mass and lump, right lower limb; X58.XXXA Exposure to other specified factors, initial encounter; Y93.89 Activity, other specified; Y92.89 Other specified places as the place of occurrence of the external cause; Y99.8 Other external cause status
CPT/HCPCS: 73700

== ENCOUNTER → 2017-12-14 | Day surgery (SDC) | payer SELFPAY ==
[~2017-12-14] VITALS: Ht 162.6 cm; Wt 104.3 kg
[~2017-12-14] MED LIST changes: +BUPIVACAINE MPF 0.5% 30 ML VIAL. ONE; +DEXAMETHASONE SOD PHOS 20 MG/5 ML VIAL. ONE; +HYDROcodone/APAP 5/325MG 1 TAB TABLET ONE; +HYDROcodone/APAP 5/325MG 1 TAB TABLET PO ONE; +HYDROmorphone 2 MG/ML VIAL IV PRN; +IV RINGERS,LACTATED 1000ML 1,000 ML IV SCH; +KETOROLAC 30 MG/ML INJ FOR OR. INJ ONE; +LIDOCAINE 1% PF 2 ML VIAL. ID PRN; +LIDOCAINE 1% PF 30 ML VIAL. ONE; +MORPHINE SULFATE 2 MG/ML VIAL. IV PRN; +MORPHINE SULFATE 2 MG/ML VIAL. ONE; +ONDANSETRON PF 4 MG/2 ML VIAL. IV PRN; +ONDANSETRON PF 4 MG/2 ML VIAL. ONE; +PROCHLORPERAZINE 10 MG/2 ML VIAL. IV PRN; +PROCHLORPERAZINE 10 MG/2 ML VIAL. ONE; +PROPOFOL 20 ML IV ONE; +SEVOFLURANE 61 TO 120 MINUTES. IH ONE; +fentaNYL PF VIAL 100 MCG/2 ML VIAL IV PRN; +fentaNYL PF VIAL 100 MCG/2 ML VIAL ONE
--- NOTE | 2017-12-14 07:33 | DISCH ---
DISCHARGE INSTRUCTIONS Condition on Discharge Condition on Discharge: Stable Activity After Discharge Activity Instructions for Disc: Other, see below Other activity instructions: NWB RLE Bathing Instructions: Shower-keep dressing dry Lifting Instructions after Dis: Do not lift >10 pounds Exercise Instruction after Dis: Walk 30 min, 3 x per week Driving Instructions after Dis: No driving for 2 weeks Weight Bearing Status after Di: No restrictions, Non weight bearing Diet after Discharge Diet after Discharge: Regular Wound Incision Care Wound/Incision Care: Ice to area for comfort, Keep wound/cast CDI, Keep wound elevated, Do not change dressing Other wound/incision instructi: keep splint clean and dry Contacting the DRChepe after DC Call your doctor for: Concerns you may have Follow-Up Follow up with: Trina in 2 wks Treatment/Equipment after DC Adaptive Equipment Issued: None CIRILO PALOMINO II, MD Dec 14, 2017 07:33
[2017-12-14 07:50] LABS: U PREG PATIENT NEGATIVE (NEG)
--- NOTE | 2017-12-14 09:59 | PDOC4 ---
Operative Note Operative Note Date of procedure: 12/14/2017 Surgeon: Tha Palomino Zinc Skimmer: Carri Lilly, certified control systems technician Preoperative diagnosis: Closed right bimalleolar ankle fracture Postoperative diagnosis: Same Procedure performed: Open reduction internal fixation right ankle fracture Anesthesia: General Complications: none Findings: Acute fracture Components inserted: 2 3.0mm cannulated screws for distal tibia, 3.5mm lag screw , 5 hole distal fibula locking plate, Wilhelm and Nephew Blood loss: 25mL Tourniquet time: 47 minutes Reason for procedure: Patient is a very pleasant 27-year-old female referred to myself for definitive management of her ankle fracture. She suffered a twisting injury and was seen in the emergency department. Please see my outpatient notes for further details. We had a discussion of the risks, benefits, and alternatives to operative intervention and she wished to proceed. Description of procedure: Patient was greeted in the preoperative area by myself for the correct extremity was verified and marked. She was taken to the operative suite and her antibiotics were started as she was brought back. Once in the operative room, she was transferred gently supine to the operating room table and secured to bed with all pressure points padded. She underwent successful induction of a general anesthetic. We placed a bump under her right hip and a nonsterile tourniquet was secured in place to her right upper thigh. Right lower extremity was then prepped and draped in our usual sterile fashion we conducted our standard preoperative timeout. I palpated and marked surface anatomy and gale a line for straight lateral incision over her distal fibula. Extremity was exsanguinated with an Esmarch and tourniquet insufflated to 250 mmHg. I then incised skin with a scalpel and dissected subcutaneous cutaneous tissue with tenotomies and electrocautery. I incised fashion line with the skin incision and identified the fracture site and used a periosteal elevator to prepare the bone for application my plate. I then turned my attention to the fracture site and debrided it with a Lakeshia small curet and metal tipped suction device. After this, I performed my reduction maneuver facilitated by direct digital manipulation and a gymic-aq-ceysc clamp. . I then directed my attention to dissection with a hemostat to identify her posterior distal tibia. I used a blunt Ryanne after identified the fracture site to protect the soft tissues. I then debrided this fracture with metal tipped suction irrigated out. After this, I used a dental pick to keep the fracture in, I relied on direct visualization. I then provisionally pinned in place and checked my reduction under fluoroscopy and was happy. I then placed my second cannulated guidepin, confirming appropriate position and trajectory based on my preoperative review of the CAT scan. I checked my fluoroscopy images again and then measured and drilled for the screws. I then placed my 23.0 mm cannulated screws from anterior to posterior. I then provisionally sized and placed my plate against bone and took my images and was happy with the reduction under triplanar fluoroscopy. I then secured the plate to bone with a nonlocking screw through the fibular shaft. I then repeated this distal to the fracture site as well. I then filled the remainder of the holes distally with locking screws followed by 2 more proximally. Next, I took my final images and performed an external Rotation stress test which was negative. After this, I irrigated out the operative field with sterile saline. I then let tourniquet down, there was some venous oozing and cautery was used to achieve hemostasis. The anterior incision was closed with inverted interrupted 2-0 Vicryl in subcutaneous tissue and simple interrupted #3-0 nylon for skin. Laterally, I close fascia with simple interrupted #1 Vicryl followed by inverted interrupted 2-0 Vicryl for subcutaneous tissue and 3-0 nylon in a vertical mattress fashion for skin. The wound was cleansed and dried, local anesthetic was injected in the olman- incisional areas. A well-padded AO splint was then applied to her right lower extremity. After this hardened, she is awake from anesthesia, she tolerated surgery well. No competitions. Postoperative plan is to discharge her home, nonweightbearing. Shell follow with me in 2 weeks, sooner should a problem arise. THA PALOMINO II, MD Dec 14, 2017 09:59
[2017-12-14] MEDS: fentaNYL PF VIAL 100 MCG/2 ML VIAL IV PRN ×2 (10:23→10:37)
[2017-12-14 11:40] VITALS: BP 139/75
== END | disposition home or self-care (01) ==
LOC: SURG 06:45
PROVIDERS: ATTEND Orthopaedic Surgery Sports Medicine
DX: S82.841A Displaced bimalleolar fracture of right lower leg, initial encounter for closed fracture (principal); Z98.890 Other specified postprocedural states; Z79.899 Other long term (current) drug therapy; Z82.61 Family history of arthritis; Z83.6 Family history of other diseases of the respiratory system; Z87.891 Personal history of nicotine dependence; X50.1XXA Overexertion from prolonged static or awkward postures, initial encounter; Y93.89 Activity, other specified; Y92.89 Other specified places as the place of occurrence of the external cause; Y99.8 Other external cause status
CPT/HCPCS: 27814; 76000; 81025; A7015; C1713; J0690; J0780; J1100; J1885; J2270; J2405; J2704; J3010; J3490

== ENCOUNTER 2020-11-22 20:46 | Emergency (ER) | payer SELFPAY ==
[~2020-11-22] VITALS: Ht 162.6 cm; Wt 122.7 kg
[~2020-11-22 20:46] MED LIST changes: -BUPIVACAINE MPF 0.5% 30 ML VIAL. ONE; -DEXAMETHASONE SOD PHOS 20 MG/5 ML VIAL. ONE; -HYDR-2758 PO; +HYDR-2761 PO; -HYDROcodone/APAP 5/325MG 1 TAB TABLET ONE; -HYDROcodone/APAP 5/325MG 1 TAB TABLET PO ONE; -HYDROmorphone 2 MG/ML VIAL IV PRN; -IV RINGERS,LACTATED 1000ML 1,000 ML IV SCH; -KETOROLAC 30 MG/ML INJ FOR OR. INJ ONE; -LIDOCAINE 1% PF 2 ML VIAL. ID PRN; -LIDOCAINE 1% PF 30 ML VIAL. ONE; -MORPHINE SULFATE 2 MG/ML VIAL. IV PRN; -MORPHINE SULFATE 2 MG/ML VIAL. ONE; -ONDANSETRON PF 4 MG/2 ML VIAL. IV PRN; -ONDANSETRON PF 4 MG/2 ML VIAL. ONE; -PROCHLORPERAZINE 10 MG/2 ML VIAL. IV PRN; -PROCHLORPERAZINE 10 MG/2 ML VIAL. ONE; -PROPOFOL 20 ML IV ONE; -SEVOFLURANE 61 TO 120 MINUTES. IH ONE; -fentaNYL PF VIAL 100 MCG/2 ML VIAL IV PRN; -fentaNYL PF VIAL 100 MCG/2 ML VIAL ONE
--- NOTE | 2020-11-23 00:23 | ED.ADGEN ---
Past Medical History Past Medical History: No Pertinent History Past Surgical History: , Other Additional Past Surgical Histo: UMBILICAL HERNIA, R ANKLE Smoking Status: Never Smoker Alcohol Use: None Drug Use: None General Adult EDM: Chief Complaint: MULTIPLE COMPLAINTS HPI: HPI: Patient is a 30 year old female presenting for right upper arm pain starting today while she was at work. Patient states she got off and the pain was continued to get worse. It feels like the pain is in the bone is aching. Is right-handed. States she has had some congestion recently but denies any fevers. Denies any trauma to the arm. Review of Systems: Review of Systems: All other systems within normal limits except for as noted in the HPI Allergies: Allergies: Allergies Coded Allergies Type Severity Reaction Last Updated Verified No Known Drug Allergies 12/14/17 No Physical Exam: PE: Constitutional: Well developed, well nourished, no acute distress, non-toxic appearance. [] HENT: Normocephalic, atraumatic, bilateral external ears normal, nose normal. [] Eyes: PERRLA, conjunctiva normal, no discharge. [] Neck: No rigidity, supple, no stridor. [] Cardiovascular: Regular rate and rhythm, brisk cap refill [] Lungs & Thorax: Non labored symmetric respirations, no tachypnea or respiratory distress [] Abdomen: Soft, nondistended. Skin: Warm, dry, no erythema, no rash. [] Back: Unremarkable Extremities: No deformities, range of motion grossly intact, no lower extremity edema right upper extremity. No tenderness over joints, no joint effusions, no extra swelling. Range of motion is intact. Tenderness palpation over outer aspect of upper arm, no tenderness in inner arm or cords, no palpable lymph nodes. [] Neurologic: Alert and oriented X 3, no focal deficits noted. [] Psychologic: Affect normal, judgement normal, mood normal. [] Current Patient Data: Labs: Laboratory Tests Test 11/23/20 00:11 POC Urine HCG, Qualitative Hcg negative (Negative) Vital Signs: Vital Signs Date Time Temp Pulse Resp B/P (MAP) Pulse Ox O2 Delivery O2 Flow Rate FiO2 11/22/20 23:17 90 16 121/69 (86) 98 Room Air 11/22/20 22:51 98.4 98.4 EKG: EKG: [] Heart Score: C/O Chest Pain: No Risk Factors: Risk Factors: DM, Current or recent (<one month) smoker, HTN, HLP, family hi story of CAD, obesity. Risk Scores: Score 0 - 3: 2.5% MACE over next 6 weeks - Discharge Home Score 4 - 6: 20.3% MACE over next 6 weeks - Admit for Clinical Observation Score 7 - 10: 72.7% MACE over next 6 weeks - Early Invasive Strategies Radiology/Procedures: Radiology/Procedures: [] Course & Med Decision Making: Course & Med Decision Making History and physical exam findings unremarkable, my interpretation of your wrist x-ray is unremarkable (pending radiologist read). Likely from overuse, no signs of osseous erosion, fracture, or infection on x-ray. Dragon Disclaimer: Dragon Disclaimer: This electronic medical record was generated, in whole or in part, using a voice recognition dictation system. Departure Departure Impression: Primary Impression: Person under investigation for COVID-19 Additional Impression: Arm pain Disposition: HOME / SELF CARE / HOMELESS Condition: STABLE Referrals: NO PCP (PCP) Additional Instructions: You have been tested for or diagnosed with COVID-19. It is an infection caused by a new type of coronavirus. COVID-19 will cause cold-like or mild flu symptoms in most. It can cause more severe symptoms like problems breathing in some. There is no treatment for COVID-19. The body will clear the infection over time. Self-care will help to ease discomfort. Steps to Take: Self-Care Rest as needed. Healthy habits may help you feel better. Steps include: Choose healthy foods including fruits and vegetables. Drink water throughout the day. Get plenty of sleep each night. If you smoke, try to quit. It may ease breathing. Avoid alcohol. Keep Others Healthy The virus can spread to others. Droplets are released every time you sneeze or cough. The droplets can get into the mouth, nose, or eyes of people near you and lead to infection. To lower the chances of spreading COVID-19 to others: Stay at home until your doctor has said it is safe to leave. If you tested positive this will mean staying isolated until both of the following are true: At least 7 days have passed since the start of illness. You are free of fever for at least 72 hours without the use of medicine. During this time: - Avoid public areas, events, or transportation. Do not return to work or school until your doctor has said it is safe to do so. - Call ahead if you need to go to a medical center. Let them know you may have COVID-19. It will help them guide you where to go. They may also ask you to wear a facemask when you come to the office. - If you call for emergency medical services, let them know you may have COVID- 19. While at home: - Try to avoid close contact with others. Stay about 6 feet away. - If possible, spend most of your time in a separate room from others. - Use a face mask if you will be in close contact with others such as sharing a room or vehicle. - Have someone wipe down common surfaces in the home. Use household prior authorization nurse every day on areas like doorknobs, counters, or sinks. - Cough or sneeze into a tissue. Throw the tissue away right after use. If a tissue is not available, cough or sneeze into your elbow. - Wash your hands often. Wash them after sneezing or coughing. Use soap and water and wash for at least 20 seconds. Alcohol based hand barrel loader and cleaner can be used if soap and water is not available. - Do not prepare food for others. Avoid sharing personal items like forks, spoons, or toothbrushes. - Avoid close contact with pets while you are sick. There is no evidence of the virus passing to pets. This is a safety step until more is known about this virus. Isolation can be frustrating. Social interaction can help. Keep in touch with friends and family through phone and tech options. You can still interact with others in your home, just keep a safe distance of about 6 feet. Follow-up: Your doctors office will check in with you to see if there are any changes in your health. You may be asked to keep track of symptoms to share with them. They will also let you know when you are clear to be in public again. Problems to Look Out For: Contact your doctor if your recovery is not going as you expect. Get emergency care if you have problems such as: - Trouble breathing - Nonstop chest pain or pressure - Changes in awareness, confusion, or problems waking - Lips or face have bluish color - Worsening of symptoms If you think you have an emergency, call for emergency medical services right away. As taken from [facility] [place] Health Problem Qualifiers JORGE MARIO MD Nov 23, 2020 00:23
[2020-11-23 01:17] VITALS: BP 121/79
--- NOTE | 2020-11-23 04:39 | RAD ---
EXAM: XR HUMERUS_RT 2 VIEWS 11/23/2020 12:35 AM CLINICAL INDICATION: Pain, no trauma COMPARISON: None TECHNIQUE: 2 views of the right humerus FINDINGS: No acute fracture. Alignment is normal. No focal soft tissue abnormality.. IMPRESSION: No acute osseous abnormality. Electronically signed by: Margaret Garzon MD (11/23/2020 4:37 AM) [id number]
--- NOTE | 2020-11-24 13:53 | NUR ---
IP: Informed pt of negative covid test. Pt verbalized understanding
== END 2020-11-23 01:30 | disposition home or self-care (01) ==
LOC: ER 20:46
DX: M79.621 Pain in right upper arm (principal); Z20.822 Contact with and (suspected) exposure to COVID-19; R09.81 Nasal congestion
CPT/HCPCS: 73060; 81025; 99285; A4565; U0003; U0005